=== PATIENT | female | born 1990 | race Caucasian/White ===

== ENCOUNTER 2023-06-09 09:36 | Outpatient (OUT) | payer BC, SELFPAY ==
[2023-06-09 10:29] LABS: HCG Quantitative <1 mIU/mL
== END 2023-06-09 09:37 | disposition home or self-care (01) ==
PROVIDERS: PCP Family Medicine; Visit Provider Family Medicine
DX: N91.2 Amenorrhea, unspecified (principal)
CPT/HCPCS: 36415; 84702